=== PATIENT | female | born 1990 | race Asian ===

== ENCOUNTER 2017-09-18 11:31 | Inpatient (IN) | payer SELFPAY ==
[~2017-09-18] VITALS: Ht 160 cm; Wt 75.7 kg
[2017-09-18] MEDS ORDERED: OXYTOCIN 20 UNITS in LACTATED RINGERS 1,000 ML IV SCH (12:02)
[2017-09-18] MEDS ORDERED: OXYTOCIN 10 UNITS/ML VIAL IM SCH (12:05)
[2017-09-18] MEDS ORDERED: AMPICILLIN 2,000 MG in NACL 0.9% 100 ML IV SCH (13:00)
[2017-09-18] MEDS ORDERED: AMPICILLIN 2,000 MG VIAL ONE (13:09)
[2017-09-18] MEDS: LACTATED RINGERS 1,000 ML IV SCH ×2 (13:10→22:06)
[2017-09-18] MEDS ORDERED: BUPIVACAINE 0.125%/NS PREMIX 250 ML ONE (13:44)
[2017-09-18] MEDS ORDERED: BUPIVACAINE 0.125%/NS PREMIX 250 ML EPI SCH (13:45)
[2017-09-18 14:15] LABS: BASOPHILS # (AUTO) 0.1 K/uL (0.00-0.22); BASOPHILS % (AUTO) 0.9 % (0.0-2.0); EOSINOPHILS # (AUTO) 0.1 K/uL (0-0.4); EOSINOPHILS % (AUTO) 0.6 % (0.0-4.0); HEMATOCRIT 33.8 % (36-48); HEMOGLOBIN 11.6 g/dL (12.0-16.0); LYMPHOCYTES # (AUTO) 1.3 K/uL (2.5-16.5); LYMPHOCYTES % (AUTO) 13.9 % (20.5-51.1); MEAN CORPUSCULAR HEMOGLOBIN 34 pg (27-31); MEAN CORPUSCULAR HGB CONC 34 g/dL (33-37); MEAN CORPUSCULAR VOLUME 100.2 fL (80-94); MONOCYTES # (AUTO) 0.5 K/uL (0.8-1.0); MONOCYTES % (AUTO) 5.8 % (1.7-9.3); NEUTROPHILS # (AUTO) 7.2 K/uL (1.8-7.7); NEUTROPHILS % (AUTO) 78.8 % (42.2-75.2); PLATELET COUNT (AUTO) 155 K/uL (140-450); RED BLOOD CELL COUNT(AUTO) 3.37 MIL/uL (4.20-5.40); RED CELL DISTRIBUTION WIDTH 12.6 % (11.6-13.7); WHITE BLOOD COUNT (AUTO) 9.2 K/uL (4.8-10.8)
[2017-09-18 15:02] LABS: ANION GAP 15.5 (8-16); CARBON DIOXIDE 23.6 mmol/L (21-32); CREATININE 0.6 mg/dL (0.6-1.3); POTASSIUM 4.1 mmol/L (3.5-5.1)
[2017-09-18 15:13] LABS: ALBUMIN 2.7 g/dL (3.4-5.0); TOTAL BILIRUBIN 0.4 mg/dL (0.0-1.0)
[2017-09-18 16:02] VITALS: BP 93/54
[2017-09-18] MEDS ORDERED: AMPICILLIN 1,000 MG VIAL ONE ×2 (16:59→20:34)
[2017-09-18] MEDS: AMPICILLIN 1,000 MG in NACL 0.9% 50 ML IV SCH ×2 (17:13→21:00)
[2017-09-18 18:45] LABS: APPEARANCE,URINE CLEAR (CLEAR); BILIRUBIN,URINE NEGATIVE (NEGATIVE); BLOOD, URINE 2+ (NEGATIVE); COLOR,URINE YELLOW (YELLOW); LEUKOCYTE ESTERASE ,URINE NEGATIVE (NEGATIVE); NITRITE, URINE NEGATIVE (NEGATIVE); PH,URINE 7.5 (5.0-9.0); UGLUCOSE NEGATIVE (NEGATIVE)
[2017-09-18 19:33] LABS: RBC,URINE 11-20 (MOD) /HPF (0-5)
[2017-09-18 19:34] LABS: WBC,URINE 0-5 (RARE) /HPF (0-5)
[2017-09-18] MEDS ORDERED: INFLUENZA VIRUS VACCINE QUAD 0.5 ML SYR IMVAC SCH (22:00)
[2017-09-19] MEDS ORDERED: AMPICILLIN 1,000 MG VIAL ONE ×4 (00:39→13:09)
[2017-09-19] MEDS: AMPICILLIN 1,000 MG in NACL 0.9% 50 ML IV SCH ×2 (01:00→05:00)
[2017-09-19] MEDS: LACTATED RINGERS 1,000 ML IV SCH (06:31)
[2017-09-19] MEDS ORDERED: BUPIVACAINE 0.125%/NS PREMIX 250 ML ONE (09:48)
[2017-09-19] MEDS ORDERED: OXYTOCIN 10 UNITS/ML VIAL ONE (10:31)
--- NOTE | 2017-09-19 11:24 | NUR ---
PATIENT HAS BEEN SCREENED AND CATEGORIZED LOW NUTRITION RISK. PATIENT WILL BE SEEN WITHIN 7 DAYS OF ADMISSION. 09/24/[address]
[2017-09-19] MEDS ORDERED: IBUPROFEN 800 MG TAB PO PRN (20:20)
[2017-09-19] MEDS ORDERED: OXYTOCIN 10 UNITS/ML VIAL IM PRN (20:20)
[2017-09-19] MEDS ORDERED: HYDROcodone/APAP 5/325 MG 1 TAB TAB PO PRN (20:20)
[2017-09-19] MEDS ORDERED: BENZOCAINE/MENTHOL 20%-0.5% 60 GM CAN TP PRN (20:20)
[2017-09-19] MEDS ORDERED: METHYLERGONOVINE 0.2 MG/ML AMP IM PRN (20:20)
[2017-09-19] MEDS ORDERED: oxyCODONE/APAP 5/325 MG 1 TAB TAB PO PRN (20:20)
[2017-09-19] MEDS ORDERED: TEMAZEPAM 15 MG CAP PO PRN (20:20)
[2017-09-19] MEDS ORDERED: MEASLES, MUMPS, AND RUBELLA 1 VIAL SQVAC PRN (20:20)
[2017-09-19] MEDS ORDERED: DOCUSATE SOD/SENNA 50/8.6 MG 1 TAB PO SCH (21:00)
[2017-09-20 07:10] LABS: HEMATOCRIT 26.5 % (36-48)
== END 2017-09-20 20:45 | disposition home or self-care (01) | DRG 775 ==
LOC: MFCC 11:31
PROVIDERS: ADMIT Obstetrics & Gynecology; ATTEND Obstetrics & Gynecology
PROC: 10E0XZZ Delivery of Products of Conception, External Approach (ICD-10-PCS; principal; 2017-09-19)
PROC: 3E033VJ Introduction of Other Hormone into Peripheral Vein, Percutaneous Approach (ICD-10-PCS; 2017-09-19)
PROC: 0W8NXZZ Division of Female Perineum, External Approach (ICD-10-PCS; 2017-09-19)
PROC: 00HU33Z Insertion of Infusion Device into Spinal Canal, Percutaneous Approach (ICD-10-PCS; 2017-09-19)
PROC: 3E0R3BZ Introduction of Anesthetic Agent into Spinal Canal, Percutaneous Approach (ICD-10-PCS; 2017-09-19)
PROC: 3E0234Z Introduction of Serum, Toxoid and Vaccine into Muscle, Percutaneous Approach (ICD-10-PCS; 2017-09-20)
PROC: 3E0234Z Introduction of Serum, Toxoid and Vaccine into Muscle, Percutaneous Approach (ICD-10-PCS; 2017-09-20)
DX: O42.92 Full-term premature rupture of membranes, unspecified as to length of time between rupture and onset of labor (principal); O69.81X0 Labor and delivery complicated by cord around neck, without compression, not applicable or unspecified; Z3A.37 37 weeks gestation of pregnancy; Z37.0 Single live birth; Z23 Encounter for immunization
CPT/HCPCS: 36415; 80053; 81001; 85018; 85025; 86592; 86886; 86900; 86901; 90658; 90715; J0290; J2590; J3490; J7120